=== PATIENT | male | born 1995 | race Caucasian/White ===

== ENCOUNTER 2021-04-02 17:33 | Emergency (ER) | payer BC ==
--- NOTE | 2021-04-02 18:00 | ER ---
Nurse's Notes [facility] Name: Eduin Howard Age: 26 yrs Sex: Male : 1995 Arrival Date: 04/02/2021 Time: 17:37 Bed 13 Private MD: Diagnosis: Laceration without foreign body of other part of head-forehead Presentation: 04/02 17:46 Chief complaint: Patient states: got hit in forehead with door as it was opening, iw laceration to mid forehead , about one hour ago. Coronavirus screen: At this time, the client does not indicate any symptoms associated with coronavirus-19. Ebola Screen: Patient negative for fever greater than or equal to 101.5 degrees Fahrenheit, and additional compatible Ebola Virus Disease symptoms Patient denies exposure to infectious person. Patient denies travel to an Ebola-affected area in the 21 days before illness onset. No symptoms or risks identified at this time. Complicating Factors: There are no complicating factors for this patient. Initial Sepsis Screen: Does the patient meet any 2 criteria? No. Patient's initial sepsis screen is negative. Does the patient have a suspected source of infection? No. Patient's initial sepsis screen is negative. Risk Assessment: Do you want to hurt yourself or someone else? Patient reports no desire to harm self or others. Onset of symptoms was April 02, 2021. 17:46 Method Of Arrival: Ambulatory iw 17:46 Acuity: ABDIAS 4 iw Triage Assessment: 19:16 General: Appears in no apparent distress. Behavior is calm, cooperative. Injury ae4 Description: Laceration sustained to forehead is bleeding a small amount. Historical: - Allergies: 17:49 No Known Allergies; iw - Home Meds: 17:49 lisinopril 20 mg Oral tab 1 tab once daily [Active]; hydrochlorothiazide 12.5 mg Oral iw tab 1 tab once daily [Active]; - PMHx: 17:49 Hypertensive disorder; iw - PSHx: 17:49 Tonsillectomy; iw - Immunization history:: Client reports receiving the 2nd dose of the Covid vaccine. - Social history:: Smoking status: Patient denies any tobacco usage or history of. Screenin:16 Abuse screen: Denies threats or abuse. Denies injuries from another. Nutritional ae4 screening: No deficits noted. Tuberculosis screening: No symptoms or risk factors identified. Fall Risk None identified. Assessment: 18:00 General: Appears in no apparent distress. uncomfortable, obese, Behavior is calm, ae4 cooperative. Pain: Complains of pain in forehead Pain currently is 7 out of 10 on a pain scale. Neuro: Level of Consciousness is awake, alert, obeys commands, Oriented to person, place, time, situation, Appropriate for age. Cardiovascular: Patient's skin is warm and dry. Respiratory: Airway is patent Respiratory effort is even, unlabored, Respiratory pattern is regular, symmetrical. GI: No signs and/or symptoms were reported involving the gastrointestinal system. GI: No signs and/or symptoms were reported involving the gastrointestinal system. : No signs and/or symptoms were reported regarding the genitourinary system. EENT: No signs and/or symptoms were reported regarding the EENT system. Derm: Wound noted forehead Wound is Vertical laceration approximately 5 mm in length. Small amount of blood noted. 18:00 Reassessment: Patient is alert, oriented x 3, equal unlabored respirations, skin ae4 warm/dry/pink. Patient states symptoms have improved. Musculoskeletal: Swelling present in forehead. 19:18 Injury Description: Laceration is 2.6 to 7.5 cm long. ae4 Vital Signs: 17:46 BP 149 / 94; Pulse 93; Resp 16 S; Temp 98.0; Pulse Ox 98% on R/A; Weight 117.93 kg; iw Height 6 ft. 2 in. (187.96 cm); 17:46 Body Mass Index 33.38 (117.93 kg, 187.96 cm) iw ED Course: 17:37 Patient arrived in ED. as 17:40 Agueda Tellez FNP-C is PHCP. kb 17:40 Ryan Del Valle MD is Attending Physician. kb 17:42 Jaciel Travis RN is Primary Nurse. ae4 17:49 Triage completed. iw 17:50 Arm band placed on. iw 19:17 Bed in low position. Call light in reach. Side rails up X 1. Adult w/ patient. ae4 19:17 Assist provider with laceration repair on forehead that was between 2.6 to 7.5 cm using ae4 sutures. Set up tray. Performed by Agueda BETANCOURT Patient tolerated well. Patient did not have IV access during this emergency room visit. Administered Medications: No medications were administered Outcome: 18:00 Discharge ordered by . kb 18:36 Patient left the ED. ae4 19:17 Discharged to home ambulatory. ae4 19:17 Condition: stable 19:17 Discharge instructions given to patient, family, Instructed on discharge instructions, follow up and referral plans. Demonstrated understanding of instructions, follow-up care. Signatures: Agueda Tellez FNP-C FNP-Annette Cortez Irene, RN RN Jaciel Travis RN RN ae4
--- NOTE | 2021-04-02 18:01 | EDPHYS ---
Physician Documentation [facility] Name: Eduin Howard Age: 26 yrs Sex: Male : 1995 Arrival Date: 04/02/2021 Time: 17:37 Bed 13 Private MD: ED Physician Ryan Del Valle HPI: 04/02 17:59 This 26 yrs old Male presents to ER via Ambulatory with complaints of kb Laceration To Forehead. 17:59 The patient has a laceration related to: hit head on the door as it was opening kb occurred at home, and there are no complicating factors. The injury was accidental. The laceration(s) is(are) located on the forehead. Onset: The symptoms/episode began/occurred just prior to arrival. Associated signs and symptoms: The patient has no apparent associated signs or symptoms. The patient has not experienced similar symptoms in the past. The patient has not recently seen a physician. Historical: - Allergies: 17:49 No Known Allergies; iw - Home Meds: 17:49 lisinopril 20 mg Oral tab 1 tab once daily [Active]; hydrochlorothiazide 12.5 mg Oral iw tab 1 tab once daily [Active]; - PMHx: 17:49 Hypertensive disorder; iw - PSHx: 17:49 Tonsillectomy; iw - Immunization history:: Client reports receiving the 2nd dose of the Covid vaccine. - Social history:: Smoking status: Patient denies any tobacco usage or history of. ROS: 17:58 Constitutional: Negative for fever, chills, and weight loss. kb 17:58 Skin: Positive for laceration(s), of the forehead. 17:58 All other systems are negative. Exam: 17:59 Constitutional: This is a well developed, well nourished patient who is awake, alert, kb and in no acute distress. Head/Face: Normocephalic, atraumatic. ENT: Moist Mucous membranes Respiratory: Respirations even and unlabored. No increased work of breathing, no retractions or nasal flaring. MS/ Extremity: Pulses equal, no cyanosis. Neurovascular intact. Full, normal range of motion. Neuro: Awake and alert, GCS 15, oriented to person, place, time, and situation. Moves all extremities. Normal gait. Psych: Awake, alert, with orientation to person, place and time. Behavior, mood, and affect are within normal limits. 17:59 Skin: injury, laceration(s), the wound is approximately 4 cm(s), of the forehead, that can be described as clean, no foreign body, linear, without bleeding. Vital Signs: 17:46 BP 149 / 94; Pulse 93; Resp 16 S; Temp 98.0; Pulse Ox 98% on R/A; Weight 117.93 kg; iw Height 6 ft. 2 in. (187.96 cm); 17:46 Body Mass Index 33.38 (117.93 kg, 187.96 cm) iw Laceration: 17:58 Wound Repair of 4cm ( 1.6in ) subcutaneous laceration to forehead. Linear shaped.. kb Distal neuro/vascular/tendon intact. Anesthesia: Wound infiltrated with 2 mls of 1% lidocaine w/ Epi. Wound prep: Extensive cleansing with hibiclenz by me, Wound irrigation with saline by me. Skin closed with 6 5-0 fast absorbing gut using simple sutures and sterile technique. Patient tolerated well. MDM: 17:40 Patient medically screened. kb 17:58 Data reviewed: vital signs, nurses notes. Data interpreted: Pulse oximetry: on room air kb is 98 %. Interpretation: normal. Counseling: I had a detailed discussion with the patient and/or guardian regarding: the historical points, exam findings, and any diagnostic results supporting the discharge/admit diagnosis, the need for outpatient follow up, a family practitioner, to return to the emergency department if symptoms worsen or persist or if there are any questions or concerns that arise at home. Administered Medications: No medications were administered Disposition Summary: 04/02/21 18:00 Discharge Ordered Location: Home kb Condition: Stable kb Diagnosis - Laceration without foreign body of other part of head - forehead kb Followup: kb - With: Emergency Department - When: As needed - Reason: Worsening of condition Followup: kb - With: Private Physician - When: 2 - 3 days - Reason: Recheck today's complaints, Continuance of care, Re-evaluation by your physician Discharge Instructions: - Discharge Summary Sheet kb - Facial Laceration, [id number] kb Forms: - Medication Reconciliation Form kb - Thank You Letter kb - Antibiotic Education kb - Prescription Opioid Use kb Addendum: 04/11/2021 22:54 Co-signature as Attending Physician, Ryan Del Valle MD PA/DIRECTOR IMMUNOLOGY's history reviewed, m a2 patient interviewed, and examined. I agree with assessment and care plan and confirm the diagnosis (es) above. Signatures: Agueda Tellez, AWNING ERECTOR-C AWNING ERECTOR-CkHannah Hernández, RN RN Ryan Arreola MD MD ma2
[2021-04-02] MEDS ORDERED: LIDOCAINE 1% W/EPI 1:100,000 MDV 20 ML VIAL ONE (18:10)
[2021-04-02 18:41] VITALS: BP 149/94; TEMP 98; O2SAT 98
== END 2021-04-02 18:36 | disposition home or self-care (01) ==
LOC: ER 17:33
PROC: 0JQ10ZZ Repair Face Subcutaneous Tissue and Fascia, Open Approach (ICD-10-PCS; principal; 2021-04-02)
DX: S01.81XA Laceration without foreign body of other part of head, initial encounter (principal); W20.8XXA Other cause of strike by thrown, projected or falling object, initial encounter; Y93.9 Activity, unspecified; Y92.019 Unspecified place in single-family (private) house as the place of occurrence of the external cause
CPT/HCPCS: 99283